=== PATIENT | female | born 1965 | race Caucasian/White ===

== ENCOUNTER 2016-12-24 10:18 | Emergency (ER) | payer OTHER ==
[~2016-12-24] VITALS: Ht 149.9 cm; Wt 81.6 kg
[~2016-12-24 10:18] MED LIST: OXYC1TAB7 PO
[2016-12-24 11:08] VITALS: BP 158/82
[2016-12-24] MEDS ORDERED: PHEN15CA PO (11:08)
[2016-12-24] MEDS ORDERED: FURO20TA3 PO (11:08)
[2016-12-24] MEDS ORDERED: GABA-586 PO (11:08)
[2016-12-24 11:31] LABS: BILIRUBIN,URINE NEGATIVE (NEG); GLUCOSE,URINE NEGATIVE (NEG); NITRITE,URINE NEGATIVE (NEG); PROTEIN,URINE NEGATIVE (NEG-TRACE); UROBILINOGEN,URINE 0.2 mg/dL (0.2 mg/dL)
[2016-12-24 11:41] LABS: BACTERIA,URINE MODERATE /HPF (0-FEW); SQUAMOUS EPITHELIAL CELL,UR MANY /LPF
[2016-12-24] MEDS ORDERED: KETOROLAC TROMETHAMINE 60 MG/2 ML SYRINGE. IM ONE (12:15)
[2016-12-24] MEDS ORDERED: DEXAMETHASONE SOD PHOS 20 MG/5 ML VIAL. IM ONE (12:15)
--- NOTE | 2016-12-24 12:22 | RAD ---
Exam performed: CT scan of the abdomen and pelvis without contrast. Clinical Indication: Right flank pain. Date of Service: 04/23/17 CT abdomen and pelvis without contrast from 09/15/16 Technique: Contiguous helical acquisitions are obtained through the abdomen and pelvis without IV contrast. Sagittal and coronal reformatted images are obtained and reviewed. CT abdomen and pelvis findings: The lung bases are essentially clear. Visualized heart is normal. Lack of IV contrast limits evaluation of abdominal viscera, however the liver, spleen and pancreas are normal. Cholelithiasis. Both adrenal glands and bilateral kidneys are normal in size without hydronephrosis or nephrolithiasis. Aorta is normal in caliber without aneurysm. The small and large bowel loops are nondilated and unremarkable. There is extensive scattered stool throughout the colon. The visualized portion of the appendix is unremarkable. Previously seen defect in the anterior abdominal wall is no longer visualized. Distal ureters are nondilated. Urinary bladder is partially decompressed. Uterus is surgically absent, no adnexal masses seen.] No free or focal fluid collections are identified. Impression: No acute intra-abdominal or pelvic process detected. No evidence of urolithiasis. Cholelithiasis. PQRS Compliance Statement: One or more of the following individualized dose reduction techniques were utilized for this examination: 1. Automated exposure control 2. Adjustment of the mA and/or kV according to patient size 3. Use of iterative reconstruction technique
[2016-12-24 12:26] LABS: CALCIUM 9.9 mg/dL (8.5-10.1); CREATININE 0.8 mg/dL (0.6-1.0); GFR 75.9; POTASSIUM 3.9 mmol/L (3.5-5.1)
[2016-12-24] MEDS ORDERED: CYCL5TAB PO (12:34)
--- NOTE | 2016-12-24 12:34 | PHYS DOC ---
Past Medical History Past Medical History: Other Additional Past Medical Histor: R arm nerve pain Past Surgical History: , Hysterectomy Additional Past Surgical Histo: Cyst removed and tendon release L wrist, L ovary Additional Information: quit 10 years ago Alcohol Use: Rarely Drug Use: None Adult General Chief Complaint Chief Complaint: FLANK PAIN HPI HPI Patient is a 51 year old female who presents with for evaluation of right flank pain intermittently over the past week. Pain has gradually worsened. She states her pain is worse with movement yet improves while at work. Her pain is worse when she gets home and she is rest. States it is a cramping pain. She denies inciting event or injury. She denies numbness, tingling, weakness, saddle anesthesia, bowel or bladder dysfunction, abdominal pain, hematuria, dysuria. Review of Systems Review of Systems Constitutional: Denies fever or chills [] Eyes: Denies change in visual acuity, redness, or eye pain [] HENT: Denies nasal congestion or sore throat [] Respiratory: Denies cough or shortness of breath [] Cardiovascular: No additional information not addressed in HPI [] GI: Denies abdominal pain, nausea, vomiting, bloody stools or diarrhea [] : Denies dysuria or hematuria [] Musculoskeletal: Denies joint pain [] Integument: Denies rash or skin lesions [] Neurologic: Denies headache, focal weakness or sensory changes [] Endocrine: Denies polyuria or polydipsia [] Current Medications Current Medications Current Medications Medications (Trade) Dose Ordered Sig/[facility] Start Time Stop Time Status Last Admin Dose Admin Dexamethasone Sodium Phosphate (Decadron) 10 mg 1X ONCE 12/24/16 12:15 12/24/16 12:16 DC 12/24/16 12:46 10 MG Ketorolac Tromethamine (Toradol Im) 15 mg 1X ONCE 12/24/16 12:15 12/24/16 12:16 DC 12/24/16 12:46 15 MG Allergies Allergies Allergies Coded Allergies Type Severity Reaction Last Updated Verified topiramate Allergy Intermediate itching 12/24/16 No Physical Exam Physical Exam Constitutional: Well developed, well nourished, no acute distress, non-toxic appearance. [] HENT: Normocephalic, atraumatic, bilateral external ears normal, oropharynx moist, nose normal. [] Eyes: PERRLA, EOMI. [] Neck: Normal range of motion, supple. [] Cardiovascular:Heart rate regular rhythm [] Lungs & Thorax: Bilateral breath sounds clear to auscultation [] Abdomen: Bowel sounds normal, soft, no tenderness. [] Skin: Warm, dry, no erythema, no rash. [] Back: No midline spinal tenderness, no CVA tenderness. Tenderness to right flank and lumbar muscles with no palpable or visual abnormality [] Extremities: No tenderness, ROM intact, no edema. [] Neurologic: Alert and oriented X 3, normal motor function, normal sensory function, no focal deficits noted. [] Psychologic: Affect normal, judgement normal, mood normal. [] Current Patient Data Vital Signs Vital Signs Date Time Temp Pulse Resp B/P Pulse Ox O2 Delivery O2 Flow Rate FiO2 12/24/16 11:08 98.0 73 20 158/82 100 Room Air 98.0 Lab Values Laboratory Tests Test 12/24/16 11:20 12/24/16 11:55 Urine Collection Type Void Urine Color Yellow Urine Clarity Clear Urine pH 7.0 Urine Specific [place] 1.010 Urine Protein Negativemg/dL (NEG-TRACE) Urine Glucose (UA) Negativemg/dL (NEG) Urine Ketones (Stick) Negativemg/dL (NEG) Urine Blood Negative (NEG) Urine Nitrite Negative (NEG) Urine Bilirubin Negative (NEG) Urine Urobilinogen Dipstick 0.2mg/dL (0.2 mg/dL) Urine Leukocyte Esterase Large (NEG) Urine RBC 1-2/HPF (0-2) Urine WBC 11-20/HPF (0-4) Urine Squamous Epithelial Cells Many/LPF Urine Bacteria Moderate/HPF (0-FEW) Urine Mucus Slight/LPF Sodium Level 143mmol/L (136-145) Potassium Level 3.9mmol/L (3.5-5.1) Chloride Level 104mmol/L (98-107) Carbon Dioxide Level 29mmol/L (21-32) Anion Gap 10 (6-14) Blood Urea Nitrogen 15mg/dL (7-20) Creatinine 0.8mg/dL (0.6-1.0) Estimated GFR (Cockcroft-Gault) 75.9 Glucose Level 109mg/dL (70-99) H Calcium Level 9.9mg/dL (8.5-10.1) Laboratory Tests 12/24/16 11:55 Radiology/Procedures Radiology/Procedures CT abdomen and pelvis without contrast. Impression: No acute intra-abdominal or pelvic process detected. No evidence of urolithiasis. Cholelithiasis. DICTATED and SIGNED BY: AD GRANDA MD DATE: 12/24/16 1217 Course & Med Decision Making Course & Med Decision Making Pertinent Labs and Imaging studies reviewed. (See chart for details) Suspect musculoskeletal pain. Discussed symptomatically treatment. Return precautions given. She and understand and agree with plan. Dragon Disclaimer Dragon Disclaimer This electronic medical record was generated, in whole or in part, using a voice recognition dictation system. Departure Departure Impression: Primary Impression: Right low back pain Additional Impression: Acute cystitis without hematuria Disposition: HOME, SELF-CARE Condition: STABLE Referrals: LORETO KRUGER MD (PCP) Patient Instructions: Back Pain, Adult, [id number] Additional Instructions: Take Tylenol or ibuprofen as needed for moderate pain. Take cyclobenzaprine as needed for severe pain. Do not drink, drive or operate heavy machinery after taking cyclobenzaprine as it may make you sleepy. Follow-up with your primary care doctor. Return for any concerns. Scripts Ciprofloxacin Hcl 250 Mg Tablet1 Tab PO BID #6 TAB Prov:Jennifer NGUYEN MD 12/24/16 Cyclobenzaprine Hcl 5 Mg Tablet1 Tab PO TID PRN MUSCLE SPASMS #10 TAB Prov:Jennifer NGUYEN MD 12/24/16 Problem Qualifiers Primary Impression: Right low back pain Chronicity: acute Sciatica presence: without sciatica Qualified Code: M54.5 - Low back pain Jennifer NGUYEN MD Dec 24, 2016 12:34
[2016-12-24] MEDS ORDERED: CIPR250T PO (12:46)
== END 2016-12-24 12:52 | disposition home or self-care (01) ==
LOC: ER 10:18
DX: N30.00 Acute cystitis without hematuria (principal); Z88.8 Allergy status to other drugs, medicaments and biological substances; Z90.710 Acquired absence of both cervix and uterus
CPT/HCPCS: 36415; 74176; 80048; 81001; 87086; 96372; 99285; J1100; J1885